=== PATIENT | female | born 1985 | race Caucasian/White ===

== ENCOUNTER → 2019-05-04 07:09 | Outpatient (CLI) | payer OTHER, SELFPAY ==
[2019-05-04 07:52] LABS: Add Manual Diff / Slide Review NO; Basophils Absolute Auto 100 /uL (0-100); Basophils Percent Auto 1.1 % (0-2); Eosinophils Absolute Auto 600 /uL (0-450); Eosinophils Percent Auto 7.8 % (2-4); Hematocrit 40.8 % (36-46); Lymphocytes Absolute Auto 2200 /uL (1100-4500); Lymphocytes Percent Auto 31.3 % (25-40); Mean Corpuscular HGB Conc 34.3 % (30-36); Mean Corpuscular Hemoglobin 31.6 PG (26-34); Mean Corpuscular Volume 92.2 fL (80-100); Monocytes Absolute Auto 500 /uL (0-900); Monocytes Percent Auto 6.5 % (3-14); Neutrophils Absolute Auto 3800 /uL (1500-7000); Neutrophils Percent Auto 53.3 % (50-75); Platelet Count 209 X10^3/uL (150-400); Red Blood Cell Count 4.43 X10^6/uL (4.0-5.2); Red Cell Distribution Width 13.5 % (11.6-14.8); White Blood Cell Count 7.1 X10^3/uL (4.5-11.0)
[2019-05-04 08:06] LABS: Alanine Aminotransferase 33 IU/L (9-52); Albumin 4.7 g/dL (3.5-5.0); Albumin Globulin Ratio 1.6 (1.0-2.8); Alkaline Phosphatase 69 U/L (38-126); Aspartate Aminotransferase 26 IU/L (14-36); Bilirubin Total 0.5 mg/dL (0.2-1.3); Blood Urea Nitrogen 14 mg/dL (7-17); Calcium 9.6 mg/dL (8.4-10.2); Carbon Dioxide 28 mmol/L (22-32); Chloride 102 mmol/L (98-107); Cholesterol 198 mg/dL (140-199); Estimated Glomerular Filt Rate > 60.0 mL/min (>60); Globulin 2.9 g/dL (1.7-4.1); Glucose 89 mg/dL (70-100); HDL Cholesterol 66 mg/dL (40-60); HEMOLYSIS < 15 (0-50); LDL Cholesterol Calculated 122 mg/dL (<100); Potassium 3.6 mmol/L (3.4-5.1); Sodium 141 mmol/L (137-145); Total Protein 7.6 g/dL (6.3-8.2); Triglycerides 50 mg/dL (35-150)
[2019-05-04 08:32] LABS: Free T3, Triiodothyronine Free 3.77 pg/mL (2.77-5.27); Free T4, Direct Thyroxine 0.83 ng/dL (0.78-2.19)
[2019-05-04 08:35] LABS: Ferritin 43.7 ng/mL (6.27-137)
[2019-05-04 08:45] LABS: Thyroid Stimulating Hormone 1.86 uIU/mL (0.47-4.68)
[2019-05-07 16:08] LABS: Thyroid Peroxidase Antibodies 100 IU/mL (< 9)
== END ==
PROVIDERS: Visit Provider Naturopath
DX: Z00.00 Encounter for general adult medical examination without abnormal findings (principal); R53.83 Other fatigue
CPT/HCPCS: 36415; 80053; 80061; 82728; 83036; 84439; 84443; 84481; 85025; 86376

== ENCOUNTER → 2019-11-18 11:10 | Outpatient (CLI) | payer OTHER, SELFPAY ==
[2019-11-18 12:28] LABS: Thyroid Stimulating Hormone 0.88 uIU/mL (0.47-4.68)
[2019-11-22 15:00] LABS: Thyroid Peroxidase Antibodies 59 IU/mL (< 9)
== END ==
PROVIDERS: PCP Naturopath; Visit Provider Naturopath
DX: E06.3 Autoimmune thyroiditis (principal)
CPT/HCPCS: 36415; 84443; 86376

== ENCOUNTER 2020-03-14 17:43 | Emergency (ER) | payer OTHER, SELFPAY ==
[2020-03-14 17:57] VITALS: BP 162/103; PULSE 95; RESP 20; TEMP 36.4; O2SAT 98; BMI 25.0
--- NOTE | 2020-03-14 18:03 | ED_ITS ---
HPI - Wound/Laceration <Fern Diaz PA-C - Last Filed: 03/14/20 22:39> General Chief Complaint: Wound/Laceration Stated Complaint: cut left index finger Time Seen by Provider: 03/14/20 17:53 Source: patient Mode of arrival: Ambulatory Limitations: no limitations History of Present Illness HPI narrative: This is an otherwise healthy well-appearing 34-year-old who presents with a avulsion to her left index finger with the bleeding mostly controlled. She said that she was slicing potatoes when the knife went forward and ?cut the end of my finger off? she immediately put pressure on it and drove herself to the hospital she states that it is very painful, she states ?it will not stop bleeding?. She says she is up-to-date on her tetanus shot and had it about 5 years ago. She has no other concerns or injuries this is an isolated complaint. She denies the use of blood thinners, significant blood loss, lightheadedness/ dizziness, or any other symptoms. Onset (ago): minute(s) (30) Extremity Location: Left: hand (left index finger tip) Place: home Patient tetanus UTD: Yes Context: accidental Associated symptoms: pain and other (difficulty getting bleeding stopped) Treatments prior to arrival: bandage Related Data Previous Rx's Medication Instructions Recorded qlthqzjg-vsiyttgxn-caqwoyicz 3.5 4 drp OTIC (EAR) TID #10 ml 12/02/19 mg/mL-10,000 unit/mL-1 % ear solution Allergies Allergy/AdvReac Type Severity Reaction Status Date / Time No Known Drug Allergies Allergy Verified 03/14/20 17:57 Review of Systems <Fern Diaz PA-C - Last Filed: 03/14/20 22:39> Review of Systems Narrative: GENERAL: Denies chills, fatigue, malaise, fever, sweats. HEENT: Denies sinus pain, ear pain, sore throat, difficulty swallowing, dizziness. RESPIRATORY: Denies dyspnea, cough, wheezing. CARDIOVASCULAR: Denies chest pain, palpitations, orthopnea, edema MUSCULOSKELETAL: denies weakness, joint pain, or bony pain SKIN: Positive for an avulsion to the end of her left index finger. Denies rash, skin lesions, or other NEUROLOGIC: Denies weakness, headache, numbness, change in speech, confusion, seizures, incoordination. PSYCHIATRIC: No concerning psychosocial issues. 12 point review of systems is negative except for those stated above Patient History <Fern Diaz PA-C - Last Filed: 03/14/20 22:39> Social History Smoking Status: Never smoker Smoking Status: Never smoker Alcohol type: wine Substance Use Type: does not use Exam <Fern Diaz PA-C - Last Filed: 03/14/20 22:39> Narrative Exam Narrative: GENERAL: 34 year old patient appears stated age. Well-nourished, well-developed patient, in mild distress. HEAD: Atraumatic. Normocephalic. EYES: Pupils equal round and reactive. Extraocular motions intact. No scleral icterus. No injection or drainage. ENT: Nose without bleeding, purulent drainage. Throat without erythema, ton sillar hypertrophy or exudate. Airway patent. NECK: Trachea midline. Non tender CARDIOVASCULAR: Regular rate and rhythm without murmurs, gallops, or rubs. EXTREMITIES: No edema or joint tenderness. BACK: Nontender without deformity or crepitance. No flank tenderness. NEURO: AOx3. SKIN: No rash or erythema of visible areas, there is approximately a 6x7 mm full-thickness avulsion on the anterior surface of her distal 2nd digit just distal to the DIP which continues to ooze blood during exam without pressure wrap in place Initial Vital Signs Initial Vital Signs: Vital Signs Temperature 97.5 F L 03/14/20 17:57 Pulse Rate 95 H 03/14/20 17:57 Respiratory Rate 20 03/14/20 17:57 Blood Pressure 162/103 H 03/14/20 17:57 Pulse Oximetry 98 03/14/20 17:57 <Renetta Rivera MD - Last Filed: 03/14/20 23:05> Initial Vital Signs Initial Vital Signs: Vital Signs Temperature 97.5 F L 03/14/20 17:57 Pulse Rate 95 H 03/14/20 17:57 Respiratory Rate 20 03/14/20 17:57 Blood Pressure 162/103 H 03/14/20 17:57 Pulse Oximetry 98 03/14/20 17:57 Course <Fern Diaz PA-C - Last Filed: 03/14/20 22:39> Course Course Narrative: Patient was initially somewhat stressed and concerned, and having difficulty stopping the bleeding completely with surgicel placed in the ED and pressure to the tip of her finger. After examination and x-ray the bleeding was better controlled however without perfect control, planned to use TXA topically however the patient declined this and preferred to try the Surgicel again with a wrap for direct pressure. Orders Ordered: ED Orders 03/14/20 18:20 XR finger LT min 2V Stat Discontinued Medications Acetaminophen (Tylenol) 650 mg PO NOW ONE Stop: 03/14/20 18:23 Last Admin: 03/14/20 18:44 Dose: 650 mg Documented by: MEISENB Lidocaine/Sodium Bicarbonate (Buffered Lidocaine 10 Ml Syr) 10 ml INJ NOW ONE Stop: 03/14/20 18:47 Last Admin: 03/14/20 18:51 Dose: 10 ml Documented by: MEISENB Tranexamic Acid (Cyklokapron) 1,000 mg MM NOW ONE Stop: 03/14/20 18:28 Last Admin: 03/14/20 18:44 Dose: 1,000 mg Documented by: MEISENB Vital Signs Vital signs: Vital Signs - 8 hr 03/14/20 17:57 Temperature 97.5 F L Pulse Rate 95 H Respiratory Rate 20 Blood Pressure 162/103 H Pulse Oximetry 98 <Renetta Rivera MD - Last Filed: 03/14/20 23:05> Orders Ordered: ED Orders 03/14/20 18:20 XR finger LT min 2V Stat Discontinued Medications Acetaminophen (Tylenol) 650 mg PO NOW ONE Stop: 03/14/20 18:23 Last Admin: 03/14/20 18:44 Dose: 650 mg Documented by: MEISENB Lidocaine/Sodium Bicarbonate (Buffered Lidocaine 10 Ml Syr) 10 ml INJ NOW ONE Stop: 03/14/20 18:47 Last Admin: 03/14/20 18:51 Dose: 10 ml Documented by: MEISENB Tranexamic Acid (Cyklokapron) 1,000 mg MM NOW ONE Stop: 03/14/20 18:28 Last Admin: 03/14/20 18:44 Dose: 1,000 mg Documented by: MEISENB Vital Signs Vital signs: Vital Signs - 8 hr 03/14/20 17:57 Temperature 97.5 F L Pulse Rate 95 H Respiratory Rate 20 Blood Pressure 162/103 H Pulse Oximetry 98 MDM - Wound/Laceration <Fern Diaz PA-C - Last Filed: 03/14/20 22:39> Differential Diagnosis Differential diagnosis: Likely avulsion of skin Medical Records Attestation: I reviewed the patient's medical records. Imaging Data Extremity x-ray #1: Radiologist's Impression: [address] [address] XRay Report Signed Patient: Kathi Fisher [facility]#: [id number] : 1985Acct:[id number] Age/Sex: 34 / FDate of Service: 03/14/20 Loc: ED Accession Number: [id number] Procedure: XR finger LT min 2V Ordering Provider: Fern Diaz P.A-C PROCEDURE: XR FINGER LT MIN 2V INDICATIONS: laceration v/partial ambutation L index distal TECHNIQUE: AP hand, 2 views of the left 2nd digit acquired. COMPARISON: None. FINDINGS: Bones: No fractures or dislocations. No suspicious bony lesions. Soft tissues: There is a soft tissue laceration of the 2nd digit distally with partial soft tissue amputation. No suspicious soft tissue calcifications or opaque foreign bodies. IMPRESSION: 1. No fractures or radiopaque foreign bodies. Dictated by: Pito Day M.D. on 03/14/2020 at 18:39 Approved by: Pito Day M.D. on 03/14/2020 at 18:40 [facility] Narrative Medical decision making narrative: This is a previously healthy 34-year-old woman who presents to the emergency department with a largely controlled told losing avulsion to her left distal index finger with no other injury or complaints. Bleeding was largely controlled initially with Surgicel and pressure wrap, the wound was not appropriate for suture closure given mild swelling and the avulsion of tissue, or surgical glue, and the patient preferred to avoid sutures if not necessary, however bleeding was ultimately controlled with additional layers of Surgicel and a pressure bandage with bulky tube gauze dressing over the top. The patient preferred not to try TXA topically for bleeding control. At the time of discharge her pressure bandage was not bleeding through and during her stay her bleeding has decreased significantly from a steady ooze down to a very very slight ooze. She was advised regarding keeping the area clean, as well as pressure bandaging as needed for continued bleeding and she was provided with emergency return precautions and advised to follow-up with her PCP. Healing by secondary intention was discussed. All questions were answered. Discharge Plan Departure Patient Disposition: Home Clinical Impression: Avulsion of skin of index finger without complication Qualifiers: Encounter type: initial encounter Qualified Code(s): S61.208A - Unspecified open wound of other finger without damage to nail, initial encounter Discharge Date/Time: 03/14/20 20:38 Instructions: DI for Minor Laceration Activity Restrictions/Additional Instructions: Thank you for letting us be part of your care in the emergency department today. There is no evidence of an emergent or life threatening illness at this time, but follow up with your doctor in 1-2 days is recommended nonetheless to continue to rule out serious underlying causes of your symptoms. Please call the office for an appointment. Please return to the Emergency Department for any worsening or persistent symptoms. Please take medications as directed. Have a fairly deep avulsion to the tip of your left index finger, that is all the way through the skin but would be difficult to bring together with sutures. Because there are a number of very small capillaries in the fingertips bleeding control was difficult. Keeping your finger well wrapped with a pressure wrap as well as not moving it very much such as keeping it maynor-taped to the adjacent finger and also keeping it elevated and keeping yourself relaxed / not doing heavy physical activity that could raise your blood pressure will help to keep it from continuing to bleed. You should not wear a tight pressure dressing bandage while you sleep. Pay close attention to your finger and remove or loosen the dressing if your finger is turning white, blue or purple. Wounds like this can heal just fine by ?secondary intention? which means it will heal from the inside out and the skin around the edges will gradually grow to cover the area that was cut. It is important to keep the area clean to minimize risk of infection may also do not want to keep it to dry, you can use bacitracin ointment for the 1st few days to keep the area clean and moisturized. Your tetanus was up-to-date so he did not need to receive that in the emergency department. Also this injury was due to a kitchen knife so I do not expect significant amount of bacteria were present. You can continue to take tylenol and ibuprofen as needed for pain. I do recommend you follow up with your PCP in the next few days as needed to check on how your wound is doing. Prescriptions: No Action qndtzdkn-qqojgnznm-JY 3.5-10,000-1 mg/mL-unit/mL-% solution 4 drp otic (ear) TID Qty: 10 RF: 2 Referrals: Ashlyn Puri ND [Primary Care Provider] - Stand Alone Forms: Work Release Note <Renetta Rivera MD - Last Filed: 03/14/20 23:05> Cosign ED Attending Cosignature Attestation: I was immediately available in the department for consultation throughout this patient's visit. I agree with documentation as above. Renetta Rivera MD
--- NOTE | 2020-03-14 18:20 | DI.RAD.S_ITS ---
PROCEDURE: XR FINGER LT MIN 2V INDICATIONS: laceration v/partial ambutation L index distal TECHNIQUE: AP hand, 2 views of the left 2nd digit acquired. COMPARISON: None. FINDINGS: Bones: No fractures or dislocations. No suspicious bony lesions. Soft tissues: There is a soft tissue laceration of the 2nd digit distally with partial soft tissue amputation. No suspicious soft tissue calcifications or opaque foreign bodies. IMPRESSION: 1. No fractures or radiopaque foreign bodies. Dictated by: Pito Day M.D. on 03/14/2020 at 18:39 Approved by: Pito Day M.D. on 03/14/2020 at 18:40
[2020-03-14] MEDS: ACETAMINOPHEN 325 MG TABLET 650 MG PO (18:44)
[2020-03-14] MEDS: TRANEXAMIC ACID 1,000 MG VIAL 1000 MG MM (18:44)
[2020-03-14] MEDS: LIDO 1%/SOD BICARB 8.4% (10ML) 10 ML SYRINGE INJ (18:51)
== END 2020-03-14 20:38 | disposition home or self-care (01) ==
PROVIDERS: Emergency Provider Student in an Organized Health Care Education/Training Program; PCP Naturopath
DX: S61.208A Unspecified open wound of other finger without damage to nail, initial encounter (principal); W26.0XXA Contact with knife, initial encounter
CPT/HCPCS: 73140; 99283